=== PATIENT | female | born 1975 | race African-American/Black ===

== ENCOUNTER 2018-11-22 14:40 | Emergency (ER) | payer SELFPAY ==
[~2018-11-22] VITALS: Ht 162.6 cm; Wt 69.0 kg
[2018-11-22 16:11] LABS: BASOPHILS % 0.8 % (0.0-2.0); EOSINOPHILS % 1.3 % (0.0-5.0); HEMATOCRIT. 36.3 % (36.0-48.0); HEMOGLOBIN. 11.6 g/dL (12.0-16.0); MEAN CORPUSCULAR HEMOGLOBIN 24.9 pg (28.0-32.0); MEAN CORPUSCULAR VOLUME 78.1 fL (81.0-99.0); MEAN PLATELET VOLUME 8.6 fl (7.4-10.4); MONOCYTES % 5.2 % (2.0-8.0); NEUTROPHILS % 74.7 % (40.0-76.0); PLATELET 307 x1000/uL (130-400); RED BLOOD CELL COUNT 4.64 mill/uL (4.2-5.4); RED CELL DISTRIBUTION WIDTH 17.5 % (11.6-14.6)
[2018-11-22 16:13] LABS: HCG SCREEN NEGATIVE
[2018-11-22 16:16] LABS: CHLORIDE 108 mEq/L (98-107)
[2018-11-22 16:18] LABS: INR 1.1; PARTIAL THROMBOPLASTIN TIME 25.7 sec (23.4-31.0); PROTHROMBIN TIME 10.7 sec (9.1-11.1)
[2018-11-22 16:25] LABS: CREATINE KINASE 94 IU/L (26-192)
[2018-11-22 16:27] LABS: CREATINE KINASE MB FRACTION < 1.0 ng/mL (0.5-3.6)
[2018-11-22 16:50] LABS: CLARITY URINE CLEAR (CLEAR); COLOR URINE YELLOW (YELLOW); KETONES URINE NEGATIVE (NEGATIVE); LEUKOCYTE ESTERASE URINE TRACE (NEGATIVE); NITRITE URINE NEGATIVE (NEGATIVE); OCCULT BLOOD URINE TRACE (NEGATIVE); PROTEIN URINE NEGATIVE (NEGATIVE); SPECIFIC GRAVITY URINE 1.016 (1.005-1.030); UROBILINOGEN URINE 0.2 E.U./dL (0.2-1.0)
[2018-11-22] MEDS ORDERED: HYDROCODONE/ACETAMINOPHEN 5/325MG TABLET PO ONE (17:30)
[2018-11-22] MEDS ORDERED: IBUPROFEN 600MG TABLET PO ONE (17:30)
[2018-11-22 18:06] VITALS: BP 99/70
== END 2018-11-22 18:20 | disposition home or self-care (01) ==
LOC: ER 14:40
DX: S20.219A Contusion of unspecified front wall of thorax, initial encounter (principal); D64.9 Anemia, unspecified; N39.0 Urinary tract infection, site not specified; V49.09XA Driver injured in collision with other motor vehicles in nontraffic accident, initial encounter; Y93.89 Activity, other specified; Y92.89 Other specified places as the place of occurrence of the external cause; Y99.8 Other external cause status
CPT/HCPCS: 36415; 71045; 81025; 82550; 82553; 83880; 84484; 84703; 93005; 99284